=== PATIENT | male | born 2000 | race Caucasian/White ===

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

== ENCOUNTER 2021-02-09 13:41 | Emergency (ER) | payer OTHER, SELFPAY ==
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
[2021-02-09 14:58] VITALS: BP 130/85; PULSE 82; RESP 16; TEMP 36.8; O2SAT 100; BMI 32.7
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
[2021-02-09] MEDS: Ibuprofen 600 MG TABLET PO (21:02)
[2021-02-09] MEDS: cephALEXin 500 MG CAPSULE PO (21:32)
== END 2021-02-09 21:35 | disposition home or self-care (01) ==
PROVIDERS: Emergency Provider Internal Medicine
DX: S01.81XA Laceration without foreign body of other part of head, initial encounter (principal); S51.811A Laceration without foreign body of right forearm, initial encounter; V49.49XA Driver injured in collision with other motor vehicles in traffic accident, initial encounter; Y93.9 Activity, unspecified; Y92.411 Interstate highway as the place of occurrence of the external cause; Y99.9 Unspecified external cause status
CPT/HCPCS: 12013; 70450; 99283; 99284